=== PATIENT | male | born 1965 | race Caucasian/White ===

== ENCOUNTER 2021-09-04 15:02 | Inpatient (IN) | payer MEDICAID ==
[~2021-09-04] VITALS: Ht 165.1 cm; Wt 68.0 kg
[2021-09-04 15:04] VITALS: BP_SYST 130
--- NOTE | 2021-09-04 15:20 | NUR ---
ASSUMED CARE, PT RSETLESS IN BED, BIBA FOR INCREASED AGITATION AND PHYSICAL HOSTILITY TOWARDS STAFF. PT PLACED ON JIM HAND SOFT WRIST RESTRAINTS ORDERED BY DR HARTMAN. ENCYCLOPEDIA RESEARCH WORKER AND PT CLOSE TO NURSING STATION FOR CLOSE OBSERVATION. PT ON SOIL CHEMIST.
[2021-09-04] MEDS ORDERED: LORazepam 2 MG/ML VIAL IM ONE (15:45)
[2021-09-04] MEDS ORDERED: HALOPERIDOL LACTATE 5 MG/ML VIAL IM ONE (15:45)
[2021-09-04] MEDS ORDERED: DIPHENHYDRAMINE INJ 50 MG/ML VIAL IM ONE (15:45)
[2021-09-04 16:06] LABS: BASOPHILS % (AUTO) 0.5 % (0.0-2.0); EOSINOPHILS % (AUTO) 0.5 % (0.0-4.0); HEMATOCRIT 32.3 % (36-54); HEMOGLOBIN 10.9 g/dL (14.0-18.0); LYMPHOCYTES # (AUTO) 0.9 K/uL (1.0-5.5); LYMPHOCYTES % (AUTO) 14.7 % (20.5-51.5); MEAN CORPUSCULAR HEMOGLOBIN 29 pg (27-31); MEAN CORPUSCULAR HGB CONC 34 % (32-36); MEAN CORPUSCULAR VOLUME 87 fL (79.0-98.0); MONOCYTES # (AUTO) 0.4 K/uL (0.0-1.0); MONOCYTES % (AUTO) 6.9 % (1.7-9.3); NEUTROPHILS % (AUTO) 77.4 % (40.0-70.0); PLATELET COUNT (AUTO) 157 K/uL (130-430); RED BLOOD CELL COUNT(AUTO) 3.72 MIL/uL (4.2-6.2); RED CELL DISTRIBUTION WIDTH 16.4 % (9.0-15.0); WHITE BLOOD COUNT (AUTO) 6.4 K/uL (4.8-10.8)
[2021-09-04 16:07] LABS: ANION GAP 3 (5-15); CALCIUM 7.4 mg/dL (8.4-11.0); CHLORIDE 106 mmol/L (98-107); CREATININE 1.02 mg/dL (0.55-1.30); GLUCOSE 103 mg/dL (70-99); POTASSIUM 3.8 mmol/L (3.5-5.1); SODIUM SERUM 139 mmol/L (136-145); UREA NITROGEN, BLOOD 15 mg/dL (8-21)
[2021-09-04 16:09] LABS: GFR AFRICAN AMERICAN 98 mL/min (>90)
[2021-09-04 16:27] LABS: ALANINE AMINOTRANSFERASE 26 U/L (12-78); ALBUMIN 2.6 g/dL (3.4-4.8); ASPARTATE AMINOTRANSFERASE 28 U/L (10-37); TOTAL BILIRUBIN 0.1 mg/dL (0.0-1.0)
[2021-09-04 16:28] LABS: ACETAMINOPHEN < 1 ug/mL (1-30); ALCOHOL, BLOOD < 3 mg/dL (<10)
[2021-09-04] MEDS ORDERED: ACETAMINOPHEN 650 MG SUPP.RECT RC ONE (16:30)
--- NOTE | 2021-09-04 16:42 | NUR ---
IN AND OUT CATH PERFORMED WITH STERILE TECHNIQUE, PT TOLERATED FAIRLY. URONE COLLECTED AND SENT TO LAB.
[2021-09-04 17:06] LABS: BARBITURATE, URINE NEGATIVE (NEG <=200); BENZODIAZEPINE, URINE POSITIVE (NEG <=150); CANNABINOID, URINE NEGATIVE (NEG <=50); COCAINE, URINE NEGATIVE (NEG <=150); METHAMPHETAMINES SCREEN,URINE NEGATIVE (NEG <=500); OPIATE, URINE NEGATIVE (NEG <=100); PHENCYCLIDINE SCREEN,URINE NEGATIVE (NEG <=25); UR TRICYCLIC ANTIDEPRESSANTS NEGATIVE (NEG <=300); URINE AMPHETAMINE NEGATIVE (NEG <=500); URINE METHADONE NEGATIVE (NEG <=200); URINE OXYCODONE SCREEN NEGATIVE (NEG <=100); URINE PROPOXYPHENE SCREEN NEGATIVE (NEG <=300)
--- NOTE | 2021-09-04 17:28 | NUR ---
PT CONT TO BE RESTLESS IN BED, AGITATED, CONT TO TRY TO GET OUT OF BED. JIM WRIST RESTRAINTS ON. DR HARTMAN UPDATED ON PTS STATUS. VSS
[2021-09-04] MEDS ORDERED: DIPHENHYDRAMINE INJ 50 MG/ML VIAL IVP ONE (17:45)
[2021-09-04] MEDS ORDERED: LORazepam 2 MG/ML VIAL IVP ONE (17:45)
[2021-09-04] MEDS ORDERED: HALOPERIDOL LACTATE 5 MG/ML VIAL IVP ONE (17:45)
[2021-09-04 17:57] LABS: BILIRUBIN,URINE NEGATIVE (NEGATIVE); BLOOD, URINE NEGATIVE (NEGATIVE); CLARITY/URINE CLEAR (CLEAR); COLOR,URINE YELLOW (YELLOW); GLUCOSE,URINE NEGATIVE (NEGATIVE); KETONES,URINE TRACE (NEGATIVE); LEUKOCYTE ESTERASE ,URINE NEGATIVE (NEGATIVE); NITRITE, URINE NEGATIVE (NEGATIVE); PH,URINE 7.5 (5.0-8.0); PROTEIN URINE NEGATIVE (NEGATIVE); UROBILINOGEN,URINE 0.2 (0.2-1.0)
--- NOTE | 2021-09-04 17:58 | NUR ---
PT MEDICATED ORDERED, PURVI PRINTED THE STRIP AND NOW IN CHART.
--- NOTE | 2021-09-04 18:34 | NUR ---
RESP EVEN AND UNLABORED, ON RA @97%, VSS.
--- NOTE | 2021-09-04 19:00 | NUR ---
Contacted the following ambulance transportation companies to attempt to secure a return ride to the pt's SNF [facility] and [facility]. None of the following providers were able to provide service due to saturation: [facility] [place] [facility] [place]
--- NOTE | 2021-09-04 19:19 | NUR ---
REPORT GIVEN TO MIYA TO ASSUME CARE.
--- NOTE | 2021-09-04 22:00 | NUR ---
NO BLS TRANSPORTS AT THIS TIME. PER MT, WAITING UNTIL AFTER 0700 FOR BLS TRANSPORT.
[2021-09-05] MEDS ORDERED: KETAMINE 30 MG/3 ML SYRINGE IVP ONE (01:00)
--- NOTE | 2021-09-05 01:00 | NUR ---
CHANGED PATIENT IN NEW GOWN, EXPLAINED TO PATIENT THE NEED TO STAY IN BED. NO EVIDENCE OF LEARNING.
[2021-09-05] MEDS ORDERED: DIPHENHYDRAMINE INJ 50 MG/ML VIAL ONE (01:10)
[2021-09-05] MEDS ORDERED: DIPHENHYDRAMINE INJ 50 MG/ML VIAL IVP ONE (01:15)
[2021-09-05] MEDS ORDERED: HALOPERIDOL LACTATE 5 MG/ML VIAL ONE (03:44)
[2021-09-05] MEDS ORDERED: OLANZapine IntraMuscular 10 MG VIAL (FOR I.M. INJECTION ONLY) IM ONE (03:45)
[2021-09-05] MEDS ORDERED: LORazepam 2 MG/ML VIAL IVP ONE ×2 (03:45→18:30)
[2021-09-05] MEDS ORDERED: HALOPERIDOL LACTATE 5 MG/ML VIAL IM ONE (03:45)
[2021-09-05] MEDS ORDERED: LORazepam 2 MG/ML VIAL ONE ×2 (03:45→20:47)
--- NOTE | 2021-09-05 03:50 | NUR ---
PATIENT GETTING MORE AGITATED, MEDICATION GIVEN. PATIENT CHANGED AND PLACED IN NEW BEDDING AND NEW GOWN.
--- NOTE | 2021-09-05 07:13 | NUR ---
REPORT GIVEN TO DEON PRITCHARD. ALL QUESTIONS ANSWERED.
--- NOTE | 2021-09-05 07:25 | NUR ---
Contacted the following ambulance transportation companies to attempt to secure a return ride to [facility]. None of the following providers were able to provide service due to saturation: [facility] [place] [facility]
--- NOTE | 2021-09-05 07:41 | NUR ---
PT RESTING IN BED , EVEN NO LABORED RESPIRATIONS, VSS AWAITING FOR TRANSPORTATION
--- NOTE | 2021-09-05 08:49 | NUR ---
PT AMBULATED TO THE SIDE OF THE BED AND URINATED ON THE FLOOR
[2021-09-05] MEDS: GABAPENTIN 300 MG CAPSULE PO SCH ×3 (09:00→21:00)
[2021-09-05] MEDS ORDERED: LORazepam 2 MG/ML VIAL IM ONE (11:30)
--- NOTE | 2021-09-05 11:38 | NUR ---
PARTIAL DOSE ATIVAN GIVEN 2MG
--- NOTE | 2021-09-05 12:31 | NUR ---
PT VSS CONSTANTLY TRYING TO GET OUT OF BED, TRYING TO PULL OUT HIS IV, REORIENT PT TO LOCATION, EDUCATED BY NOT TO GET OUT OF BED FOR SAFETY. PT IS CLOSE TO NURSING STATION FOR OBSERVATION.
--- NOTE | 2021-09-05 14:36 | NUR ---
Notified ED Admitting regarding Dr. Mullins's request for admission. Per Dr. Mullins, pt is not stable for transfer. Will contact insurance verification representative regarding this matter. [facility] Addendum: 09/05/21 at [address] MULLINS HAS RE-EVALUATED PT AND PER DR. MULLINS PT IS STABLE FOR TRANSFER. PAMRN IS SPEAKING TO SCALER REGRDING CLINICAL INFO.
--- NOTE | 2021-09-05 14:53 | NUR ---
JOSE LUIS STATED PT IS CAPITATED TO [place], WILL CALL BACK
--- NOTE | 2021-09-05 15:12 | NUR ---
SANFORD CanoRN) FROM [facility] RECEIVED SBAR, STATED WILL CALL BACK FOR TO
--- NOTE | 2021-09-05 15:15 | NUR ---
NOTIFIED (NISA) THAT HER WILL TRANSFER TO [facility]
[2021-09-05] MEDS ORDERED: DIVA500T PO (15:44)
[2021-09-05] MEDS ORDERED: LORA2TAB95 PO (15:44)
[2021-09-05] MEDS ORDERED: HAL5 PO (15:44)
[2021-09-05] MEDS ORDERED: MAGN400T10 PO (15:44)
[2021-09-05] MEDS ORDERED: LEVE500T9 PO (15:44)
[2021-09-05] MEDS ORDERED: FAMO40TA7 PO (15:44)
[2021-09-05] MEDS ORDERED: OLAN10TA3 PO (15:44)
[2021-09-05] MEDS ORDERED: LISI10TA29 PO (15:44)
[2021-09-05] MEDS ORDERED: GABA-529 PO (15:44)
--- NOTE | 2021-09-05 15:44 | NUR ---
Medication reconciliation completed with information provided by [facility]. Any prior medication reconciliation on file was reviewed and corrected.
--- NOTE | 2021-09-05 15:50 | NUR ---
Insurance doc called back to speak to Dr. Mullins regarding pt status. Agreed to keep pt admitted and will follow up.
--- NOTE | 2021-09-05 17:08 | NUR ---
Alejandra from [facility] transfer called requesting Facesheet. given
--- NOTE | 2021-09-05 17:25 | NUR ---
PT APPEARS MORE ALERT,CONTINUE TO APPEARS FIDGETY
[2021-09-05] MEDS ORDERED: LORazepam 1 MG TABLET PO SCH (18:30)
--- NOTE | 2021-09-05 18:30 | NUR ---
2ND DOSE 2MG IV ATIVAN GIVEN AT THIS TIME
--- NOTE | 2021-09-05 20:15 | NUR ---
Pt in bed at this time. Pt remains AMS. Normal skin color for ethnicity. Pt continuously takes off media monitor while attempting to place leads on him.
[2021-09-05] MEDS: HALOPERIDOL 5 MG TABLET (HALDOL) PO SCH (21:00)
[2021-09-05] MEDS ORDERED: GABAPENTIN 100 MG CAPSULE PO SCH (21:00)
--- NOTE | 2021-09-05 21:06 | NUR ---
20 gauge IV catheter to right AC removed intact and dressing applied due to infiltration, no active bleeding.
--- NOTE | 2021-09-05 21:23 | NUR ---
# 20 gauge angiocath placed to left forearm. Use of asceptic technique. Opsite placed over site. Blood return noted. Blood for lab drawn from site. Flushed with 10 cc of normal saline. No evidence of infiltration noted. Patient tolerated well.
--- NOTE | 2021-09-05 22:45 | NUR ---
Patient urinated onto floor at this time and on his gown. Pt's linens and gown changed at this time. Pt provided with food and water.
[2021-09-05] MEDS: levETIRAcetam 500 MG TABLET PO SCH (23:13)
[2021-09-05] MEDS: FAMOTIDINE 20 MG TABLET PO SCH (23:13)
--- NOTE | 2021-09-05 23:21 | NUR ---
Condom catheter placed on patient's penis at this time to prevent further urination on self and to prevent skin breakdown. Pt tolerated well.
--- NOTE | 2021-09-06 00:55 | NUR ---
Pt removed condom catheter at this time
[2021-09-06] MEDS: MAGNESIUM OXIDE 400 MG TABLET PO SCH ×3 (01:23→21:00)
[2021-09-06] MEDS: OLANZapine 10 MG TABLET PO SCH ×3 (01:23→22:39)
--- NOTE | 2021-09-06 01:34 | NUR ---
New condom catheter placed on patient at this time.
--- NOTE | 2021-09-06 04:30 | NUR ---
PT removed condom catheter at this time.. Approximately 650 mL of urine collected in urine bag prior to patient's self-removal of condom catheter.
--- NOTE | 2021-09-06 05:22 | NUR ---
Pt resting with eyes closed at this time. Respirations even and unlabored. Normal skin color for ethnicity. No signs of acute distress.
--- NOTE | 2021-09-06 07:20 | NUR ---
PT RESTING IN BED ,VSS NON LABORED BREATHING RESPIRATION EVEN, APPEARS TO BE IN NO ACUTE DISTRESS NOTED AT THIS TIME.
[2021-09-06] MEDS: levETIRAcetam 500 MG TABLET PO SCH (09:00)
[2021-09-06] MEDS: LISINOPRIL 10 MG TABLET (PRINIVIL) PO SCH (09:00)
[2021-09-06] MEDS: HALOPERIDOL 5 MG TABLET (HALDOL) PO SCH ×2 (09:00→22:39)
[2021-09-06] MEDS: FAMOTIDINE 20 MG TABLET PO SCH (09:00)
[2021-09-06] MEDS ORDERED: LORazepam 2 MG/ML VIAL IVP ONE (10:45)
--- NOTE | 2021-09-06 10:48 | NUR ---
PT STANDING UP WITH UNSTEADY GAIT TRYING T REMOVE IV, EDUCATED PT TO STAY IN BED.
--- NOTE | 2021-09-06 12:30 | NUR ---
Dr. Salinas is at bedside
--- NOTE | 2021-09-06 13:20 | NUR ---
PT CONTINUES TO GET OUT OF BED, URINIATED ALL OVER THE BED, SHEET CHANGED, PT TAKES OFF GOWN,HOUSESUPERVISOR AWARE PT NEEDS SITTER
[2021-09-06] MEDS ORDERED: LORazepam 2 MG/ML VIAL IM ONE (13:30)
[2021-09-06] MEDS ORDERED: DIPHENHYDRAMINE INJ 50 MG/ML VIAL IM ONE (13:30)
[2021-09-06] MEDS ORDERED: HALOPERIDOL LACTATE 5 MG/ML VIAL IM ONE (13:30)
[2021-09-06] MEDS ORDERED: LORazepam 1 MG TABLET PO PRN (14:25)
[2021-09-06] MEDS: GABAPENTIN 300 MG CAPSULE PO SCH ×2 (15:00→21:00)
--- NOTE | 2021-09-06 15:00 | NUR ---
ALERT, ABLE TO MAKE NEEDS KNOWN VSS, TRYING TO PULL OUT IV, REORIENT.
--- NOTE | 2021-09-06 17:08 | NUR ---
PT CONSTANTLY MOVING IN BED , VSS, RESPIRATIONS EVEN NON LABORED, CONTINUE 1:1 OBSERVATION.
--- NOTE | 2021-09-06 18:23 | NUR ---
DAUGHTER WESLY OLGUIN WANTS TO WISH HAPPY FATHERS DAY
--- NOTE | 2021-09-06 19:27 | NUR ---
REPORT RECIVED FROM PAM PARTIDA. PT ON RESTRAINTS UPON RECIEPT OF REPORT. PT AWAKE, TAJIK SPEAKING. WILL MONITOR CLOSELY
--- NOTE | 2021-09-06 19:29 | NUR ---
PT CONFUSED AND ON SOFT RESTRAINTS. ATTEMPTED TO CALM PT WITH NON THREATENING VERBAL COMMUNICATION. DR KUMAR NOTIFIED OF PT STATUS. PT PENDING ADMISSION . PT REMAINS ON 4 POINT RESTRAINTS FOR SAFETY. PT INFORMED IN [place] THAT RESTRAINTS WILL BE REMOVED WHEN HE IS ABLE TO REMAIN IN BED, CALM AND REFRAIN FROM TRYING TO WALK AROUND OR REMOVE IV. SEE RESTRAINT MONITORING ASSESSMENT FOR FREQUENT CHECKS ON PT. WILL MONITOR CLOSELY
[2021-09-06] MEDS: DIVALPROEX SODIUM 500 MG TABLET( DEPAKOTE) PO SCH (21:00)
--- NOTE | 2021-09-06 21:41 | NUR ---
PT VERY ERRATIC ATTEMPTING TO GET OUT OF BED. PT PLACED IN [place] POSITION WITH A PILLOW. PT REFUSED PO MEDICATIONS. PT SETTLED FOR A FEW MINUTES THEN GET AGITATED AGAIN. WILL MONITOR CLOSELY.
[2021-09-06] MEDS: levETIRAcetam 1,500 MG in NS 85 ML IV SCH (22:15)
[2021-09-06] MEDS ORDERED: LORazepam 2 MG/ML VIAL ONE (23:12)
--- NOTE | 2021-09-06 23:34 | NUR ---
PT CONTINUES TO REMOVE THE SHEETS AND UNCOVERS HIMSELF, PT REMINDED TO KEEP HIMSELF COVERED AND A NEW BLANKET WAS PLACED OVER HIM WITH A PILLOW. WILL MONITOR VERY CLOSELY
--- NOTE | 2021-09-07 00:22 | NUR ---
PT IN BED RESTING WITH EYES CLOSED, PT VITALS STABLE. WILL CONTINUE TO MONITOR CLOSELY
[2021-09-07] MEDS: PANTOPRAZOLE SODIUM 40 MG/VIAL (PROTONIX) IVP SCH ×2 (02:06→09:50)
[2021-09-07] MEDS ORDERED: PANTOPRAZOLE SODIUM 40 MG/VIAL (PROTONIX) ONE (02:07)
--- NOTE | 2021-09-07 02:19 | NUR ---
PT RESTRAINTS REMOVED FOR TRIAL AND TO ASSIST WITH SKIN AND CIRCULATION, PT MILDLY AGITATED. PT GIVEN JELLO BY RN, AND PROVIDED WITH ICE CHIPS FOR HYDRATION. PT VITAL SIGNS ARE STABLE, WILL CONTINUE TO MONITOR VERY CLOSELY
--- NOTE | 2021-09-07 04:11 | NUR ---
PT SOILED WITH URINE, BEDDING CHANGED, PT GOWN AND PANTS CHNGED. PT REMOVED FROM BEHAVIORAL RESTRAINTS. PT CALM AND ASLEEP, BREATHING UNLABORED. PT REMAINES ON CREDIT ASSISTANT, WILL MONITOR CLOSELY. MADE AWARE
[2021-09-07] MEDS: 0.45% NACL 1,000 ML IV SCH (04:32)
[2021-09-07 04:38] LABS: BASOPHILS % (AUTO) 0.7 % (0.0-2.0); EOSINOPHILS # (AUTO) 0.1 K/uL (0.0-0.4); EOSINOPHILS % (AUTO) 2.9 % (0.0-4.0); HEMATOCRIT 32.1 % (36-54); HEMOGLOBIN 11.1 g/dL (14.0-18.0); LYMPHOCYTES # (AUTO) 0.9 K/uL (1.0-5.5); MEAN CORPUSCULAR HEMOGLOBIN 30 pg (27-31); MEAN CORPUSCULAR HGB CONC 35 % (32-36); MEAN CORPUSCULAR VOLUME 87 fL (79.0-98.0); MONOCYTES # (AUTO) 0.4 K/uL (0.0-1.0); NEUTROPHILS # (AUTO) 3.6 K/uL (1.8-7.7); NEUTROPHILS % (AUTO) 70.4 % (40.0-70.0); PLATELET COUNT (AUTO) 152 K/uL (130-430); RED CELL DISTRIBUTION WIDTH 16.8 % (9.0-15.0); WHITE BLOOD COUNT (AUTO) 5.1 K/uL (4.8-10.8)
[2021-09-07 04:45] LABS: INR 1.1 (0.80-1.20); PROTHROMBIN TIME 11.8 SECS (9.5-12.5)
[2021-09-07 04:56] LABS: ALBUMIN 2.6 g/dL (3.4-4.8); CALCIUM 7.4 mg/dL (8.4-11.0); CREATININE 0.96 mg/dL (0.55-1.30); POTASSIUM 3.2 mmol/L (3.5-5.1); TOTAL BILIRUBIN 0.5 mg/dL (0.0-1.0)
[2021-09-07] MEDS: LORazepam 2 MG/ML VIAL IVP PRN ×3 (05:38→20:12)
[2021-09-07] MEDS ORDERED: LORazepam 2 MG/ML VIAL ONE ×3 (05:39→20:13)
--- NOTE | 2021-09-07 06:17 | NUR ---
PT RESTING EYES CLOSED, PT ASLEEP. NO ACUTE DISTRESS. BREAKFAST TRAY ORDERED.
--- NOTE | 2021-09-07 07:10 | NUR ---
REPORT RECIEVED FROM HELGA LEMA FOR CONTINUING CARE
--- NOTE | 2021-09-07 07:20 | NUR ---
PT IS SLEEPING IN GURNEY, EVEN CHEST RISE AND FALL, CONNECTED TO REGIONAL SALES TRAINER AND VSS
--- NOTE | 2021-09-07 07:38 | NUR ---
BREAKFAST TRAY PROVIDED TO PT
[2021-09-07] MEDS: GABAPENTIN 300 MG CAPSULE PO SCH ×4 (09:00→21:00)
[2021-09-07] MEDS: levETIRAcetam 1,500 MG in NS 85 ML IV SCH ×2 (09:50→22:00)
--- NOTE | 2021-09-07 10:47 | NUR ---
Admit bed requested Patient will be admitted to care of . Admitted to MS unit. Diagnosis PSYCHOSIS Inpatient (Yes or No) YES Observation (Yes or No) YES Orientation concerns or request close to nursing station (Yes or No) YES Covid Status NEGATIVE On vent or bipap NO Isolation requirements NO Needs a sitter NO From Home (Yes or if No enter name of facility) SNF [facility] Requires Dialysis (Yes or No) NO Med Rec Completed (Yes of No) YES
--- NOTE | 2021-09-07 12:05 | NUR ---
REPORT GIVEN TO HELGA HIDALGO FOR CONTINUING CARE
[2021-09-07] MEDS ORDERED: LISINOPRIL 10 MG TABLET (PRINIVIL) ONE (12:17)
[2021-09-07] MEDS: DIVALPROEX SODIUM 500 MG TABLET( DEPAKOTE) PO SCH ×2 (12:18→21:00)
[2021-09-07] MEDS: MAGNESIUM OXIDE 400 MG TABLET PO SCH ×2 (12:19→21:00)
[2021-09-07] MEDS: LISINOPRIL 10 MG TABLET (PRINIVIL) PO SCH (12:19)
[2021-09-07] MEDS: OLANZapine 10 MG TABLET PO SCH ×2 (12:28→21:00)
[2021-09-07] MEDS: HALOPERIDOL 5 MG TABLET (HALDOL) PO SCH ×2 (12:28→21:00)
--- NOTE | 2021-09-07 12:30 | NUR ---
REPORT RECEIVED, PT AWAKE, ATTEMPTING TO GET OUT OF BED, CONFUSED, UNABLE TO FOLLOW COMMANDS. REORIENTED, ASSISTED TO GURNEY, UPRIGHT POSITION. REG DIET TRAY GIVEN, TOLERATED WELL WITH MAXIUMUM ASSIST, CHEWS WELL. MEDICATED WITH AM MEDS, TOLERATED WELL. CN AWARE THAT PT NEEDS SITTER. PT CLOSE TO NURSING STATION, SAFETY PRECAUTIONS IN PLACE. WILL CONT TO MONITOR.
--- NOTE | 2021-09-07 13:06 | NUR ---
PT REMOVED IV LINE, BLEEDING CONTROLLED. NEW IV INSERTED TO RT FOREARM, MEDICTAED WITH PRN ATIVAN.
--- NOTE | 2021-09-07 15:11 | NUR ---
PT WITH EYES CLOSED, IN NAD. RESP EVEN AND UNLABORED, ON RA @99%. DENIES ANY PAIN. IV FLUID INFUSING WELL. SAFETY PRECAUTIONS IN PLACE, WILL CONT TO MONIOR CLOSELY.
--- NOTE | 2021-09-07 18:08 | NUR ---
AND SISTER IN LAW AT BEDSIDE, SPEAKING WITH DR JACOBSON, ASSISTING WITH TRANSLATION. PT AWAKE, ALERT TO NAME AND 'S NAME, DISORIENTED TO PLACE. UNABLE TO RECALL EVENTS. PLAN IS FOR DR JACOBSON TO REVIEW CHART AND POSSIBLY MEDICALLY CLEAR HIM TO TRANSFER TO [facility] IN [place].
--- NOTE | 2021-09-07 19:22 | NUR ---
report given to rolly millerassistant county attorney
--- NOTE | 2021-09-07 20:29 | NUR ---
Received order from Dr. Moore to apply bilateral wrist and leg soft restraints (non-behavioral).
--- NOTE | 2021-09-07 20:30 | NUR ---
Pt attempting to leave ER area multiple times. Pulling off monitoring lines and attempting to discontinue iv. Applied 4 point soft restraints.
[2021-09-08] MEDS: LORazepam 2 MG/ML VIAL IVP PRN ×2 (00:15→05:28)
[2021-09-08] MEDS ORDERED: LORazepam 2 MG/ML VIAL ONE ×2 (00:24→05:25)
[2021-09-08] MEDS: 0.45% NACL 1,000 ML IV SCH ×2 (02:58→19:46)
[2021-09-08 05:28] LABS: BASOPHILS % (AUTO) 0.6 % (0.0-2.0); EOSINOPHILS # (AUTO) 0.2 K/uL (0.0-0.4); EOSINOPHILS % (AUTO) 2.7 % (0.0-4.0); HEMATOCRIT 33.9 % (36-54); HEMOGLOBIN 11.5 g/dL (14.0-18.0); LYMPHOCYTES # (AUTO) 0.9 K/uL (1.0-5.5); MEAN CORPUSCULAR HEMOGLOBIN 30 pg (27-31); MEAN CORPUSCULAR HGB CONC 34 % (32-36); MEAN CORPUSCULAR VOLUME 87 fL (79.0-98.0); MONOCYTES # (AUTO) 0.6 K/uL (0.0-1.0); MONOCYTES % (AUTO) 7.5 % (1.7-9.3); NEUTROPHILS # (AUTO) 5.7 K/uL (1.8-7.7); NEUTROPHILS % (AUTO) 77.2 % (40.0-70.0); PLATELET COUNT (AUTO) 156 K/uL (130-430); RED BLOOD CELL COUNT(AUTO) 3.89 MIL/uL (4.2-6.2); RED CELL DISTRIBUTION WIDTH 16.8 % (9.0-15.0); WHITE BLOOD COUNT (AUTO) 7.4 K/uL (4.8-10.8)
[2021-09-08 05:30] LABS: CALCIUM 7.8 mg/dL (8.4-11.0); CREATININE 0.76 mg/dL (0.55-1.30); POTASSIUM 3.7 mmol/L (3.5-5.1)
--- NOTE | 2021-09-08 07:31 | NUR ---
ASSUMED CARE OF PT. PT IS RESTING IN BED WITH NO S/S OF DISTRESS. PT ON BILATERAL SOFT WRIST RESTRAINTS ON ALL 4 EXTREMITIES. PT IS CALM SO RESTRAINTS WERE REMOVED. PT NOT COMBATIVE. CALLED DIETARY SO PT CAN HAVE BREAKFAST. VSS. SKIN INTACT. BED IN LOWEST POSITION. PT HAS 20G IV ON RIGHT FOREARM THAT IS INTACT NO INFILTRATION NOTED. NEW WARM BLANKETS GIVEN TO PT.
--- NOTE | 2021-09-08 07:42 | NUR ---
BREAKFAST ARRIVED FOR PT. STUDENT NURSE FEEDING PT. PT CALM AND COOPERATIVE.
--- NOTE | 2021-09-08 08:00 | NUR ---
Pt ate 80% of breakfast. NO c/o. VSS. Able to tolerate well. Free of restraints pt is calm and cooperative.
[2021-09-08] MEDS: GABAPENTIN 300 MG CAPSULE PO SCH ×3 (09:00→21:00)
[2021-09-08] MEDS: LISINOPRIL 10 MG TABLET (PRINIVIL) PO SCH (09:00)
--- NOTE | 2021-09-08 09:11 | NUR ---
Called pharmacy due to pt's 899 medications not populating in [facility]xix. Maryjane from pharmacy stated she will bring his medications as soon as possible.
[2021-09-08] MEDS: PANTOPRAZOLE SODIUM 40 MG/VIAL (PROTONIX) IVP SCH (09:34)
[2021-09-08] MEDS: HALOPERIDOL 5 MG TABLET (HALDOL) PO SCH ×2 (09:45→21:00)
[2021-09-08] MEDS: DIVALPROEX SODIUM 500 MG TABLET( DEPAKOTE) PO SCH ×2 (09:45→21:00)
[2021-09-08] MEDS: MAGNESIUM OXIDE 400 MG TABLET PO SCH ×2 (09:46→21:00)
[2021-09-08] MEDS: OLANZapine 10 MG TABLET PO SCH ×2 (09:46→21:00)
--- NOTE | 2021-09-08 09:46 | NUR ---
Pt has taken his 0900 medications with no hesitation. Swallow eval done and pt has no issues swallowing his medications. VSS. Still off restraints. pt cooperative and compliant.
[2021-09-08] MEDS: levETIRAcetam 1,500 MG in NS 85 ML IV SCH ×2 (09:54→21:08)
--- NOTE | 2021-09-08 10:06 | NUR ---
Pt starting to become agitated and climb out of bed. Placed pt back on bilateral soft restraints. Skin is intact. Cap refill <3 seconds in all extremities. Circulation checks done and are all within normal limits.
--- NOTE | 2021-09-08 11:31 | NUR ---
Psych physician at bedside and cleared pt of psych issues. Paged Dr. Ramos to transport [facility]. Waiting for call back.
--- NOTE | 2021-09-08 12:32 | NUR ---
Pt in bed resting with no s/s of distress. Soft wrist bilateral restraints removed. Skin intact. Cap refill <3 seconds in all extremities. Circulation within normal levels. VSS. Conected to prefabricated houses trimmer. Bed in lowest position.
--- NOTE | 2021-09-08 12:36 | NUR ---
Dr. Ramos gave clearance for to be discharged from hospital. Mental Health Social Worker Maryjane is on the case.
--- NOTE | 2021-09-08 12:44 | NUR ---
Discharge Planning: DCP faxed referral to [facility] [phone] DCP spoke to Lashawn in admission and referred DCP to Awais Singh. DCP to follow up.
--- NOTE | 2021-09-08 15:00 | NUR ---
Rechecked soft bilateral restraints and skin is intact. VSS. Circultaion within normal limts. Cap refill <3 seconds. Pt still uncooperative.
--- NOTE | 2021-09-08 17:21 | NUR ---
I spoke to patient's -Viv Olmedo at [phone]. She stated she wants her to go back to [facility], I gave this information to lead dental assistant DON ,Makayla Donald, and clinical social work aide, Shazia Dupree, at [facility] [phone]. This information was also given to Awais, seo coordinator for [facility]. Awais will call you with a room # , if you do not hear from him by 6 PM call him at [phone].Transportation for this patient will be [facility] at [phone].
--- NOTE | 2021-09-08 18:07 | NUR ---
Hvac/R Instructor (Maryjane) stated [facility] must take pt back and family has accepted to have pt go back to [facility]. [facility] is rfusing to take pt but psychosocial rehabilitation counselor Maryjane talked with coordinator Awais from there and also gamaliel Leach from there and they came to an agreement to take pt back and will call back by 6pm with a bed. It is past 6pm and no call has been recieved. Called [facility] and no one is answering. Called multiple times but no answer. Charge nurse yan made aware.
--- NOTE | 2021-09-08 18:09 | NUR ---
[facility] MARISA Manuel , and Coordinator from [facility] is . [facility] to call for transportation once [facility] gives us a bed is .
--- NOTE | 2021-09-08 18:19 | NUR ---
Got a hold of HELGA Ojeda from [facility] and he stated "I am sorry I do not know anything about that pt and no one has coordinated with me upon the return of the pt so there is no available bed for the pt". Rusty stated Awais and Mar left for the day and wont be back until tomorrow morning.
--- NOTE | 2021-09-08 18:23 | NUR ---
Asked for RN at [facility] clementine Ojeda is actually one of the LVNS there. Unable to get in contact with RN at the facility.
--- NOTE | 2021-09-08 19:35 | NUR ---
rec notes from Reny RN, pt vs are within normal limits, pt in bed with bed lowered and locked on restraints.
--- NOTE | 2021-09-08 21:24 | NUR ---
attempted to give po meds at 2109. pt refused to take a sip of water and meds
--- NOTE | 2021-09-09 07:30 | NUR ---
Recieved pt from HELGA Heck. Pt is aaox2. pt is in restraints with cap. refill <3sec. Pt denies food. repositioned pt and bed down rails up.
[2021-09-09] MEDS: 0.45% NACL 1,000 ML IV SCH (08:08)
[2021-09-09] MEDS: GABAPENTIN 300 MG CAPSULE PO SCH (09:00)
[2021-09-09] MEDS: PANTOPRAZOLE SODIUM 40 MG/VIAL (PROTONIX) IVP SCH (09:57)
--- NOTE | 2021-09-09 10:27 | NUR ---
Discharge Planning: DCP faxed pt referral to [facility]#[phone] F#[phone] DCP to follow up Addendum: 09/09/21 at 1223 by Lashawn Irving DP DCP arranged transport with [facility] [phone] 2:00pm BLS to [facility][phone] Rm 11. DCP made CM aware. Patient packet taken to ER nurse station.
[2021-09-09] MEDS: LISINOPRIL 10 MG TABLET (PRINIVIL) PO SCH (10:32)
[2021-09-09] MEDS: levETIRAcetam 1,500 MG in NS 85 ML IV SCH (10:39)
[2021-09-09] MEDS: MAGNESIUM OXIDE 400 MG TABLET PO SCH (10:40)
[2021-09-09] MEDS: HALOPERIDOL 5 MG TABLET (HALDOL) PO SCH (10:40)
[2021-09-09] MEDS: DIVALPROEX SODIUM 500 MG TABLET( DEPAKOTE) PO SCH (10:40)
[2021-09-09] MEDS: OLANZapine 10 MG TABLET PO SCH (10:41)
[2021-09-09] MEDS ORDERED: LORazepam 2 MG/ML VIAL IVP ONE (13:00)
--- NOTE | 2021-09-09 13:10 | NUR ---
I spoke w/ patient's ,Viv, with Franny, her sister, as her interpreter deaf. She was given the address of [address] [place] [phone]. Room 11. The patient's agreed to the transfer. She was informed the patient will be transferred at 2 PM.
--- NOTE | 2021-09-09 14:11 | NUR ---
pt tolerated drinking some apple juice and several bites of chicken
--- NOTE | 2021-09-09 15:00 | NUR ---
Is being transferred due to higher level of care. Receiving facility has accepting physician and available space. ER Dr. Gupta physician has signed transfer form. Patient or responsible democrat has agreed to transfer and signed form. Patient belongings inventoried and will be sent with patient. Copy of nursing notes, lab reports, EKG, Physicians Orders and X-rays to be sent with patient. [facility] ambulance service has been called for transfer. ETA is 1500.
--- NOTE | 2021-09-09 15:00 | NUR ---
Note undone in EDM - 09/10/21 at 0848 by EFRAINNBELEN Is being transferred due to higher level of care. Receiving facility has accepting physician and available space. ER Dr. Gupta physician has signed transfer form. Patient or responsible libertarian has agreed to transfer and signed form. Patient belongings inventoried and will be sent with patient. Copy of nursing notes, lab reports, EKG, Physicians Orders and X-rays to be sent with patient. Report called to Bakari Charge nurse at receiving facility. [facility] ambulance service has been called for transfer. ETA is 1500.
--- NOTE | 2021-09-09 15:00 | NUR ---
Note undone in EDM - 09/10/21 at 0820 by ADRIÁN Patient to be transferred to [facility]. Is being transferred due to higher level of care. Receiving facility has accepting physician and available space. ER Dr. Gupta physician has signed transfer form. Patient or responsible constitution party has agreed to transfer and signed form. Patient belongings inventoried and will be sent with patient. Copy of nursing notes, lab reports, EKG, Physicians Orders and X-rays to be sent with patient. Report called to Bakari Charge nurse at receiving facility. [facility] ambulance service has been called for transfer. ETA is 1500.
[2021-09-09 18:25] VITALS: BP_SYST 102
--- NOTE | 2021-09-10 08:47 | NUR ---
Note undone in EDM - 09/10/21 at 0848 by EFRAINNBELEN Is being transferred due to higher level of care. Receiving facility has accepting physician and available space. ER Dr. Gupta physician has signed transfer form. Patient or responsible republican has agreed to transfer and signed form. Patient belongings inventoried and will be sent with patient. Copy of nursing notes, lab reports, EKG, Physicians Orders and X-rays to be sent with patient. [facility] ambulance service has been called for transfer. ETA is 1500.
== END 2021-09-09 15:00 | DRG 53 ==
LOC: SED 15:02 → SMU 09-05 16:30
PROVIDERS: ADMIT Internal Medicine; ATTEND Internal Medicine
DX: G40.909 Epilepsy, unspecified, not intractable, without status epilepticus (principal); K72.90 Hepatic failure, unspecified without coma; E44.0 Moderate protein-calorie malnutrition; F29 Unspecified psychosis not due to a substance or known physiological condition; K76.6 Portal hypertension; K74.60 Unspecified cirrhosis of liver; I10 Essential (primary) hypertension; Z20.822 Contact with and (suspected) exposure to COVID-19; Z68.25 Body mass index [BMI] 25.0-25.9, adult
CPT/HCPCS: 36415; 71045; 80048; 80053; 80164; 80307; 81003; 82140; 82962; 83605; 83735; 85025; 85610-TC; 85730-TC; 87040; 96372; 96374; 96375; 96376; 99285; C9113; G0480; G0481; G0482; J1200; J1630; J1953; J2060; J3490